=== PATIENT | female | born 1985 | race Caucasian/White ===

== ENCOUNTER 2018-07-06 12:12 | Emergency (ER) | payer BC ==
[~2018-07-06] VITALS: Ht 167.6 cm; Wt 56.7 kg
[2018-07-06 12:15] VITALS: BP 136/100
== END 2018-07-06 13:52 | disposition home or self-care (01) ==
LOC: ER 12:14
DX: S46.812A Strain of other muscles, fascia and tendons at shoulder and upper arm level, left arm, initial encounter (principal); Z88.2 Allergy status to sulfonamides; Z88.6 Allergy status to analgesic agent; Z88.5 Allergy status to narcotic agent; V43.52XA Car driver injured in collision with other type car in traffic accident, initial encounter; Y92.410 Unspecified street and highway as the place of occurrence of the external cause; Y93.89 Activity, other specified; Y99.8 Other external cause status
CPT/HCPCS: A4606; Z7610